=== PATIENT | female | born 1950 | race Caucasian/White ===

== ENCOUNTER → 2016-11-25 | Outpatient (CLI) | payer BC ==
[~2016-11-25] MED LIST: BUDE6HFA; CEFP250T2; ESTR1TAB66; FLT05NA16; GLYC30DR4; LRT10T; MNTL10T; NF-XOP-HFA; OLOP30.5; PRD20T; TRM50T; [UNRECOGNIZED DRUG - CODE]
--- NOTE | 2016-11-25 13:37 | Diagnostic Imaging Report ---
Unilateral diagnostic left mammogram. INDICATION: Followup exam. The screening mammogram performed on 05/17/2016, noted an asymmetric density in the lateral aspect of the left breast. This was only seen on the CC view. The subsequent diagnostic mammogram and ultrasound exam of 05/23/2016, indicated that this finding was probably related to fibroglandular tissue. On this exam the area of increased density seen previously is not as conspicuous. I suspect that it was indeed secondary to superimposition of the dense fibroglandular tissue in the left breast. The overall appearance of the left breast itself is stable. IMPRESSION: 1. There is no evidence of malignancy. 2. The patient should have her annual bilateral screening mammogram on schedule in April of 2017. ACR BI-RADS Category 1: Negative. Result letter will be mailed to the patient. Note: At least 10% of breast cancer is not imaged by mammography. Dictated by: Dictated on workstation # [id number]
== END ==
LOC: RAD 07:30
PROVIDERS: ATTEND Internal Medicine
DX: R92.8 Other abnormal and inconclusive findings on diagnostic imaging of breast (principal)

== ENCOUNTER → 2017-08-28 | Outpatient (CLI) | payer MEDICARE ==
--- NOTE | 2017-08-29 14:13 | Diagnostic Imaging Report ---
Bilateral screening mammogram 2D views with tomosynthesis The current study was also evaluated with a Computer Aided Detection (CAD) system. INDICATION: Screening. No current complaints stated on the questionnaire. COMPARISON: 11/25/2016. FINDINGS: The breasts are composed of heterogeneously dense parenchyma which may decrease mammographic sensitivity. There is no mass, architectural distortion, or suspicious cluster of calcifications. Allowing for technique and positional differences, no suspicious change is seen. IMPRESSION: Dense breasts with no definite change. ACR BI-RADS Category 2: Benign findings. Result letter will be mailed to the patient. Note: At least 10% of breast cancer is not imaged by mammography. Dictated by: Dictated on workstation # [id number]
== END ==
LOC: RAD 10:44
PROVIDERS: ATTEND Internal Medicine
DX: Z12.31 Encounter for screening mammogram for malignant neoplasm of breast (principal)
CPT/HCPCS: 77067

== ENCOUNTER → 2018-02-12 | Outpatient (CLI) | payer MEDICARE ==
[2018-02-12 11:21] LABS: BUN/CREATININE RATIO 16; CARBON DIOXIDE 27 MMOL/L (21-32); CHLORIDE 105 MMOL/L (98-107); POTASSIUM 4.2 MMOL/L (3.6-5.0); SODIUM 140 MMOL/L (135-145)
[2018-02-12 11:22] LABS: ALANINE AMINOTRANSFERASE 27 U/L (0-55); ALBUMIN 4.5 GM/DL (3.2-4.5); ALKALINE PHOSPHATASE 45 U/L (40-136); BILIRUBIN,TOTAL 0.3 MG/DL (0.1-1.0); CALCIUM 9.8 MG/DL (8.5-10.1); GFR ESTIMATED > 60; GLUCOSE 102 MG/DL (70-105)
== END ==
LOC: LAB 10:41
PROVIDERS: ATTEND Internal Medicine
DX: R10.2 Pelvic and perineal pain (principal)
CPT/HCPCS: 36415; 80053; 85652

== ENCOUNTER → 2018-02-15 | Outpatient (CLI) | payer MEDICARE ==
[~2018-02-15] MED LIST changes: +IOHEXOL 350 MG/ML 100 ML (OMNIPAQUE 350) VIAL IV ONE; +NS 250 ML (IVPB) BAG IV ONE
--- NOTE | 2018-02-15 08:40 | Diagnostic Imaging Report ---
PROCEDURE: CT abdomen and pelvis with contrast. TECHNIQUE: Multiple contiguous axial images were obtained through the abdomen and pelvis after administration of intravenous contrast. INDICATION: Abdominal pain. There is no focal hepatic or splenic lesion identified. There is distention of the gallbladder without evidence of wall thickening. There is mild prominence of pancreatic duct without evidence of pancreatic lesion. Adrenal glands and kidneys are unremarkable in appearance. There is a large amount of stool distributed throughout the redundant colon. There is no evidence of free fluid. No organized fluid collection is identified in the abdomen or pelvis. There are occasional calcified phleboliths in the pelvis. Partially opacified urinary bladder is unremarkable. IMPRESSION: There is a large amount of stool distributed throughout the redundant colon without evidence of obstruction. No free fluid or organized fluid collection is seen within the abdomen or pelvis. There is no evidence of focal inflammation. Dictated by: Dictated on workstation # [id number]
== END ==
LOC: RAD 07:51
PROVIDERS: ATTEND Internal Medicine
DX: R10.9 Unspecified abdominal pain (principal)
CPT/HCPCS: 74177

== ENCOUNTER → 2018-08-29 | Outpatient (CLI) | payer MEDICARE ==
[~2018-08-29] MED LIST changes: -IOHEXOL 350 MG/ML 100 ML (OMNIPAQUE 350) VIAL IV ONE; -NS 250 ML (IVPB) BAG IV ONE
--- NOTE | 2018-08-29 12:03 | Diagnostic Imaging Report ---
INDICATION: Routine screening. Comparison is made with prior mammogram from 08/28/2017 and 05/17/2016. 2-D and 3-D bilateral screening mammography was performed with CAD. The current study was also evaluated with a Computer Aided Detection (CAD) system. FINDINGS: Both breasts are heterogeneously dense, limiting the sensitivity of mammography. No discrete mass is identified. No malignant-appearing microcalcifications are seen. The axillae are unremarkable. IMPRESSION: No mammographic features suspicious for malignancy are identified. ACR BI-RADS Category 1: Negative. Result letter will be mailed to the patient. Note: At least 10% of breast cancer is not imaged by mammography. Dictated by: Dictated on workstation # [id number]
== END ==
LOC: RAD 09:56
PROVIDERS: ATTEND Nurse Practitioner
DX: Z12.31 Encounter for screening mammogram for malignant neoplasm of breast (principal)
CPT/HCPCS: 77067

== ENCOUNTER → 2019-02-19 | Outpatient (CLI) | payer MEDICARE ==
--- NOTE | 2019-02-19 10:15 | Diagnostic Imaging Report ---
INDICATION: Left knee pain and swelling. AP, oblique, and lateral views of left knee are obtained. FINDINGS: No acute fracture or acute bony abnormality is seen. There is mild superior patellar spurring. IMPRESSION: No acute bony abnormality. Dictated by: Dictated on workstation # [id number]
== END ==
LOC: RAD 09:34
PROVIDERS: ATTEND Physician Assistant
DX: M25.462 Effusion, left knee (principal)
CPT/HCPCS: 73562

== ENCOUNTER → 2019-09-02 | Outpatient (CLI) | payer MEDICARE ==
--- NOTE | 2019-09-02 08:51 | Diagnostic Imaging Report ---
INDICATION: Screening. TECHNIQUE: The current study was also evaluated with a Computer Aided Detection (CAD) system. 3D Tomographic imaging was also performed. 3D tomosynthesis was performed and reviewed. COMPARISON: 08/29/2018, 08/28/2017, and 05/17/2016. FINDINGS: The fibroglandular tissue is heterogeneously dense bilaterally. There is no dominant mass, spiculated lesion, or suspicious calcification identified. The skin, nipples, and axillae are unremarkable. IMPRESSION: Negative. ACR BI-RADS Category 1: Negative. Result letter will be mailed to the patient. Note: At least 10% of breast cancer is not imaged by mammography. Dictated by: Dictated on workstation # [id number]
== END ==
LOC: RAD 07:48
PROVIDERS: ATTEND Nurse Practitioner
DX: Z12.31 Encounter for screening mammogram for malignant neoplasm of breast (principal)
CPT/HCPCS: 77067

== ENCOUNTER → 2020-09-04 | Outpatient (CLI) | payer MEDICARE ==
--- NOTE | 2020-09-04 11:33 | Diagnostic Imaging Report ---
INDICATION: Routine screening. Comparison is made with prior mammogram from 09/02/2019 and 08/29/2018. 2-D and 3-D bilateral screening mammography was performed with CAD. Both breasts are heterogeneously dense, limiting the sensitivity of mammography. There is a cluster of microcalcifications of the upper outer left breast posterior depth that have increased since prior mammogram. Additional views are recommended. No dominant mass is detected. Axillae are unremarkable. IMPRESSION: BI-RADS 0 Increasing left breast calcifications. Additional views are recommended for further evaluation. ACR BI-RADS Category 0: Incomplete. (Needs additional imaging evaluation). Result letter will be mailed to the patient. Note: At least 10% of breast cancer is not imaged by mammography. Dictated by: Dictated on workstation # [id number]
== END ==
LOC: RAD 08:34
PROVIDERS: ATTEND Internal Medicine
DX: Z12.31 Encounter for screening mammogram for malignant neoplasm of breast (principal); R92.1 Mammographic calcification found on diagnostic imaging of breast
CPT/HCPCS: 77063; 77067

== ENCOUNTER → 2020-09-14 | Outpatient (CLI) | payer MEDICARE ==
--- NOTE | 2020-09-14 16:01 | Diagnostic Imaging Report ---
INDICATION: Left breast calcifications. The patient presents for additional views. COMPARISON: Correlation is made with the recent screening study from 09/04/2020 and a prior mammogram from 09/02/2019. TECHNIQUE: Unilateral left 2D and 3D diagnostic mammography was performed including magnification CC and ML views as well as conventional 90 degree lateral view. The current study was evaluated with a Computer Aided Detection (CAD) system. FINDINGS: The additional views show a cluster of microcalcifications in the upper outer left breast at posterior depth. These have increased since the prior exam. These are indeterminate. No associated soft tissue mass is detected. IMPRESSION: Indeterminate cluster of microcalcifications in the upper outer left breast at posterior depth. Tissue sampling is recommended. These would be amenable to stereotactic guidance. ACR BI-RADS Category 4: Suspicious abnormality. Result letter will be mailed to the patient. Note: At least 10% of breast cancer is not imaged by mammography. Dictated by: Dictated on workstation # [id number]
== END ==
LOC: RAD 13:15
PROVIDERS: ATTEND Internal Medicine
DX: R92.0 Mammographic microcalcification found on diagnostic imaging of breast (principal)
CPT/HCPCS: 77065; G0279

== ENCOUNTER → 2020-12-01 | Outpatient (CLI) | payer MEDICARE | LOC: LABNPT 08:40 | PROVIDERS: ATTEND Internal Medicine | DX: R11.2 Nausea with vomiting, unspecified (principal); R50.9 Fever, unspecified; R53.83 Other fatigue; R07.9 Chest pain, unspecified; Z20.822 Contact with and (suspected) exposure to COVID-19 | CPT/HCPCS: 87635 ==

== ENCOUNTER 2021-08-11 13:22 | Outpatient (CLI) | payer MEDICARE ==
[~2021-08-11] VITALS: Ht 160 cm; Wt 54.0 kg
[2021-08-11] MEDS ORDERED: ESTR42.52 VG (13:59)
[2021-08-11] MEDS ORDERED: RT-ALBUINH IH (13:59)
[2021-08-11] MEDS ORDERED: BUDE10.2 IH (13:59)
[2021-08-11] MEDS ORDERED: MONT10TA32 PO (13:59)
[2021-08-11] MEDS ORDERED: LEVO75CA5 PO (13:59)
[2021-08-11] MEDS ORDERED: ESTR10TA9 VG (13:59)
== END 2021-08-11 14:53 ==
LOC: PREOP 13:22
PROVIDERS: ATTEND Internal Medicine
DX: Z01.818 Encounter for other preprocedural examination (principal)

== ENCOUNTER 2021-08-20 08:04 | Day surgery (SDC) | payer MEDICARE ==
--- NOTE | 2021-08-12 07:16 | HISTORY AND PHYSICAL ---
DATE OF SERVICE: COLONOSCOPY HISTORY AND PHYSICAL HISTORY: The patient is a 71-year-old white female referred by Dr. Pederson for diagnostic colonoscopy. She reports intermittent bright red blood per rectum associated with constipation. She reports that she has a history of IBS-C, for which she takes intermittent Linzess and MiraLax 4. She denies any associated rectal pain or abdominal pain. I believe her only other colonoscopy in 2010, at which time she had no evidence for internal or external hemorrhoids. No polyps were noted. She is not aware of any family history for colon cancer. PAST MEDICAL HISTORY: Significant for thyroid replacement and asthma. She reports this is well controlled on her current inhaler therapy, which include p.r.n. ProAir and Symbicort 2 puffs b.i.d. with Singulair 10 mg daily. Other medications include L-thyroxine 75 mcg daily and estradiol 1 mg daily. She takes cetirizine nwxt-hvf-apgorsa and calcium citrate with D as well as stool softeners and Beano. She is fully COVID vaccinated. PAST SURGICAL HISTORY: Significant for hysterectomy over 10 years [address] done [address] Dr[address] Rivero. SOCIAL HISTORY: Occasional small volume alcohol use and no past smoking history. FAMILY HISTORY: No history for GI tract malignancy. Her mother had breast cancer, postmenopausal. Has one sister with type 2 diabetes mellitus and father succumbed heart disease in his 60s. SOCIAL HISTORY: She is retired, occasional alcohol use and no past smoking history. REVIEW OF SYSTEMS: CONSTITUTIONAL: Denies night sweats, chills, fever, change in weight. PULMONARY: Denies cough, chest congestion, shortness of breath or dyspnea on exertion. CARDIAC: Denies chest pain, orthopnea, PND, pedal edema or syncope. GASTROINTESTINAL: As noted in the HPI. PHYSICAL EXAMINATION: GENERAL: Reveals a white female appeared to be in no acute distress. HEENT: Unremarkable. CHEST: Clear to auscultation. CARDIOVASCULAR: Reveals a regular rate and rhythm without significant murmur, S3 or S4. VITAL SIGNS: Blood pressure 150/70, weight 119 pounds. ABDOMEN: Soft, supple. Mild left lower quadrant discomfort to palpation was present without mass or organomegaly. No bruits are noted. Bowel sounds are positive. EXTREMITIES: Reveal no cyanosis, clubbing or edema. ASSESSMENT: The patient is being set up for a colonoscopy for further evaluation of rectal bleeding. She also qualifies for screening as it has been more than 10 years since her last colonoscopy. Prep instructions with Suprep kit were given and questions were answered. Thank you for the referral of this pleasant lady. Job ID: [id number] DocumentID: [id number] Dictated Date: 08/06/2021 12:46:11 Masticator Date: 08/06/2021 13:32:22 Dictated By: KARY CARROLL MD
[~2021-08-20] VITALS: Ht 160 cm; Wt 54.0 kg
[~2021-08-20 08:04] MED LIST changes: +BUDE10.2 IH; +ESTR10TA9 VG; +ESTR42.52 VG; +LEVO75CA5 PO; +MONT10TA32 PO; +RT-ALBUINH IH
[2021-08-20] MEDS ORDERED: LACTATED RINGERS 1,000 ML IV STA (08:07)
[2021-08-20] MEDS ORDERED: LACTATED RINGERS 1,000 ML IV ONE (08:11)
[2021-08-20] MEDS ORDERED: LIDOCAINE JELLY 2% 6 ML SYRINGE MM PRN (08:15)
[2021-08-20 08:21] VITALS: BP 130/71
--- NOTE | 2021-08-20 08:26 | Pre-Op Note & Conscious Sedat ---
Pre-Operative Progress Note H&P Reviewed The H&P was reviewed, patient examined and no changes noted. Date H&P Reviewed: Aug 20, 2021 Time H&P Reviewed: 08:26 Conscious Sedation Pre-Proced ASA Score 2 For ASA 3 and 4: Consider anesthesia and medical clearance. Also, for patients with a history of failed moderate sedation consider anesthesia. Airway Lungs Heart ASA score ASA 1: a normal healthy patient ASA 2: a patient with a mild systemic disease (mid diabetes, controlled hypertension, obesity ASA 3: a patient with a severe systemic disease that limits activity (angina, COPD, prior Myocardial infarction) ASA 4: a patient with an incapacitating disease that is a constant threat to life (CHF, renal failure) ASA 5: a moribund patient not expected to survive 24 hrs. (ruptured aneurysm) ASA 6: a declared brain- patient whose organs are being harvested. For emergent operations, add the letter E after the classification Mallampati Classification Grade 2 Sedation Plan Analgesia, Amnesia, Plan communicated to team members, Discussed options with patient/fam, Discussed risks with patient/fam The patient is an appropriate candidate to undergo the planned procedure, sedation, and anesthesia. The patient immediately re-assessed prior to indication. KARY CARROLL MD Aug 20, 2021 08:26
[2021-08-20] MEDS ORDERED: PROPOFOL INJECTION 50 ML IV ONE (08:54)
[2021-08-20 09:25] VITALS: BP 123/69
[2021-08-20 09:30] VITALS: BP 120/70
[2021-08-20 09:35] VITALS: BP 120/70
[2021-08-20 10:30] VITALS: BP 120/70
--- NOTE | 2021-08-20 14:10 | OPERATIVE REPORT ---
DATE OF SERVICE: COLONOSCOPY SUMMARY INDICATION FOR THE PROCEDURE: Screening colonoscopy. The patient did report some small volume bright red blood per rectum with only when straining to pass hard stool. DESCRIPTION OF PROCEDURE: The patient was placed in the left lateral decubitus position. Prior to undergoing colonoscopy, digital rectal evaluation was performed. Anal sphincter tone was normal and the perianal reflexes intact. No abnormalities were noted on digital inspection of anal canal or distal rectal vault. The colonoscope was then inserted into the rectum and under direct visualization advanced to cecum. Cecum was identified by identification of ileocecal valve and cecal strap. Photographic documentation was obtained. Careful inspection was made as colonoscope was withdrawn. The quality of prep was good. FINDINGS: The rectum, sigmoid colon, descending colon, transverse colon, ascending colon, and cecum were unremarkable, save for 1 mm a tannish nodules compatible with lymphoid follicles none larger than 2 mm in size. One was biopsied and submitted for histopathology. ASSESSMENT: No significant abnormalities were noted on today's procedure. The patient did have several hawk 1 to 2 mm nodules, most likely lymphoid follicles. As long as there is no evidence for neoplasia on histopathology, we would advocate consideration for repeat screening colonoscopy in 10 years. Patient reassured. Her history with today's negative findings does suggest a component of pelvic floor dysfunction so I did recommend she discuss pelvic floor PT for this and she reports urinary incontenance with her PCP Dr. Pederson. I would recommend Camille Rod who is now working at [facility]. I thank you for the referral of this pleasant lady. Job ID: [id number] DocumentID: [id number] Dictated Date: 08/20/2021 09:30:09 Rn Pain Management Date: 08/20/2021 14:10:09 Dictated By: KARY CARROLL MD [facility]
--- NOTE | 2021-08-20 14:42 | Anesthesia-General Post-Op ---
MAC Patient Condition Mental Status/LOC: Same as Preop Cardiovascular: Satisfactory Nausea/Vomiting: Absent Respiratory: Satisfactory Pain: Controlled Complications: Absent Post Op Complications Complications None Follow Up Care/Instructions Patient Instructions None needed. Anesthesiology Discharge Order Discharge Order Patient is doing well, no complaints, stable vital signs, no apparent adverse anesthesia problems. No complications reported per nursing. AUSTEN LOPES CRNA Aug 20, 2021 14:42
== END 2021-08-20 10:30 | disposition home or self-care (01) ==
LOC: ENDO 08:04
PROVIDERS: ATTEND Internal Medicine
DX: K62.5 Hemorrhage of anus and rectum (principal); K59.00 Constipation, unspecified; K58.1 Irritable bowel syndrome with constipation; J45.909 Unspecified asthma, uncomplicated; K21.9 Gastro-esophageal reflux disease without esophagitis; Z79.899 Other long term (current) drug therapy

== ENCOUNTER → 2021-09-06 | Outpatient (CLI) | payer MEDICARE ==
--- NOTE | 2021-09-06 10:18 | Diagnostic Imaging Report ---
INDICATION: Routine screening. Comparison is made with prior mammogram 09/04/2020 and 09/02/2019. 2-D and 3-D bilateral screening mammography was performed with CAD. Both breasts are heterogeneously dense, limiting the sensitivity of mammography. Lumpectomy changes in the outer left breast are noted. There are benign calcifications in the medial left breast. No mass or malignant-appearing microcalcifications are seen. Axillae are unremarkable. IMPRESSION: No mammographic features suspicious for malignancy are identified. BI-RADS Category 2 ACR BI-RADS Category 2: Benign findings. Result letter will be mailed to the patient. Note: At least 10% of breast cancer is not imaged by mammography. Dictated by: Dictated on workstation # [id number]
== END ==
LOC: RAD 08:30
PROVIDERS: ATTEND Physician Assistant
DX: Z12.31 Encounter for screening mammogram for malignant neoplasm of breast (principal)
CPT/HCPCS: 77063; 77067

== ENCOUNTER 2021-10-28 09:11 | Outpatient (RCR) | payer MEDICARE ==
[~2021-10-28 09:11] MED LIST changes: +MONT-40 PO; -MONT10TA32 PO
== END 2021-10-29 | disposition home or self-care (01) ==
PROVIDERS: ATTEND Internal Medicine
DX: R32 Unspecified urinary incontinence (principal)

== ENCOUNTER 2021-11-25 11:16 | Outpatient (RCR) | payer MEDICARE | END 2021-11-29 | disposition home or self-care (01) | PROVIDERS: ATTEND Internal Medicine | DX: R32 Unspecified urinary incontinence (principal) ==

== ENCOUNTER 2022-07-21 08:49 | Outpatient (CLI) | payer MEDICARE ==
[~2022-07-21] VITALS: Ht 160 cm; Wt 53.1 kg
[2022-07-21 09:00] VITALS: BP 130/67
[2022-07-21] MEDS ORDERED: EPINEPHrine INJECTION 1 MG/ML AMP IM PRN (09:15)
[2022-07-21] MEDS ORDERED: diphenhydrAMINE 50 MG/ML INJ (BENADRYL) IV PRN (09:15)
[2022-07-21] MEDS ORDERED: BEBTELOVIMAB 175 MG/2 ML VIAL IV ONE (09:15)
[2022-07-21] MEDS ORDERED: ACETAMINOPHEN 500 MG TAB (TYLENOL) PO PRN (09:15)
[2022-07-21] MEDS ORDERED: ONDANSETRON 4 MG/2 ML (SDV) Z0FRAN IV PRN (09:15)
[2022-07-21 09:54] VITALS: BP 110/58
== END 2022-07-21 09:54 | disposition home or self-care (01) ==
LOC: INFUSION 08:49
PROVIDERS: ATTEND Physician Assistant
DX: U07.1 COVID-19 (principal)

== ENCOUNTER → 2022-09-13 | Outpatient (CLI) | payer MEDICARE ==
[~2022-09-13] MED LIST changes: +ALBU8.5H6 IH; -RT-ALBUINH IH
--- NOTE | 2022-09-13 09:27 | Diagnostic Imaging Report ---
INDICATION: Postmenopausal state. COMPARISON: 03/20/2014 FINDINGS: AP Spine L1-L4: [BMD (g/cm2): 0.999] [T-Score: -1.7] [Z-Score: 0.4] [BMD Previous: 0.912] [BMD % Change: 9.5] LT Hip Neck: [BMD (g/cm2): 0.855] [T-Score: -1.3] [Z-Score: 0.6] LT Hip Total: [BMD (g/cm2):0.927] [T-Score:-0.6] [Z-Score: 1.1] [BMD Previous: 0.892] [BMD % Change: 3.9] RT Hip Neck: [BMD (g/cm2):0.806] [T-Score:-1.7] [Z-Score:0.3] RT Hip Total: [BMD (g/cm2):0.971] [T-score:-0.3] [Z-Score:1.4] [BMD Previous:0.917] [BMD % Change:5.9] *Indicates significant change from prior examination based on 95% confidence level. World Health Organization criteria for BMD interpretation classify patients as Normal (T-score at or above -1.0), Osteopenic (T-score between -1.0 and -2.5) or Osteoporotic (T-score at or below -2.5). LIMITATIONS AND MODIFICATION: None. FRACTURE RISK (FRAX SCORE): FRAX score is not calculated as the patient has been treated for osseous demineralization. IMPRESSION: 1. Osteopenia (Low bone mass). 2. There has been a statistically significant increase in BMD since prior exam, detailed above. 3. See below National Osteoporosis Foundation guidelines on when to potentially initiate pharmacologic therapy. Based on the National Osteoporosis Foundation Guidelines, pharmacologic treatment should be initiated in any of the following, unless clinical conditions suggest otherwise: * Any patient with prior fragility fracture of the hip or vertebrae. A spine fracture indicates 5X risk for subsequent spine fracture and 2X risk for subsequent hip fracture. * Osteoporosis (T-score <-2.5). * Postmenopausal women and men age 50 and older with low bone mass/osteopenia (T-score between -1.0 and -2.5) by DXA and 10-year major osteoporotic fracture greater than 20% or a 10-year probability of hip fracture greater than 3%. These fracture risks are supplied above in the FRAX score, if applicable. * Clinician judgement and/or patient preferences may indicate treatment for people with 10-year fracture probabilities above or below these levels. Dictated by: Dictated on workstation # [id number]
--- NOTE | 2022-09-13 14:49 | Diagnostic Imaging Report ---
INDICATION: Routine screening. COMPARISON: 09/06/2021 and 09/04/2020. TECHNIQUE: 2D and 3D bilateral screening mammography was performed with CAD. FINDINGS: Both breasts are heterogeneously dense, limiting the sensitivity of mammography. Post therapeutic changes in the upper outer left breast appear stable. There are benign calcifications bilaterally. The nodular density in the inferior right breast is stable. No spiculated mass or malignant-appearing microcalcifications are seen. The axillae are unremarkable. IMPRESSION: No mammographic features suspicious for malignancy are identified. ACR BI-RADS Category 2: Benign findings. Result letter will be mailed to the patient. Note: At least 10% of breast cancer is not imaged by mammography. Dictated by: Dictated on workstation # [id number]
== END ==
LOC: RAD 08:25
PROVIDERS: ATTEND Internal Medicine
DX: Z13.820 Encounter for screening for osteoporosis (principal); M85.89 Other specified disorders of bone density and structure, multiple sites; Z12.31 Encounter for screening mammogram for malignant neoplasm of breast; Z78.0 Asymptomatic menopausal state
CPT/HCPCS: 77063; 77067; 77080

== ENCOUNTER → 2023-09-15 | Outpatient (CLI) | payer MEDICARE ==
--- NOTE | 2023-09-15 13:05 | Diagnostic Imaging Report ---
Indication: Routine screening. Comparison is made with prior mammogram 09/13/2022 and 09/06/2021. 2-D and 3-D bilateral screening mammography was performed with CAD. The current study was also evaluated with a Computer Aided Detection (CAD) system. Both breasts remain heterogeneously dense, limiting the sensitivity of mammography. Post-therapeutic changes left breast are again noted. A nodular density inferior right breast is stable. No new mass or malignant appearing microcalcifications are identified. There are benign calcifications present. Axillae are unremarkable. IMPRESSION: BI-RADS Category 2 No mammographic features suspicious for malignancy are identified. ACR BI-RADS Category 2: Benign findings. Result letter will be mailed to the patient. Note: At least 10% of breast cancer is not imaged by mammography. Dictated by: Dictated on workstation # [id number]
== END ==
LOC: RAD 08:30
PROVIDERS: ATTEND Internal Medicine
DX: Z12.31 Encounter for screening mammogram for malignant neoplasm of breast (principal); J45.20 Mild intermittent asthma, uncomplicated; M53.3 Sacrococcygeal disorders, not elsewhere classified; K59.9 Functional intestinal disorder, unspecified; K21.9 Gastro-esophageal reflux disease without esophagitis; E03.8 Other specified hypothyroidism
CPT/HCPCS: 77063; 77067